=== PATIENT | female | born 2000 ===

== ENCOUNTER 2020-12-29 12:55 | Emergency (ER) | payer SELFPAY ==
[2020-12-29 14:21] VITALS: BP 123/72
--- NOTE | 2020-12-29 14:36 | Emergency Department Report ---
ED Upper Extremity Inj HPI - General Chief Complaint: Extremity Injury, Upper Stated Complaint: LFT THUMB FINGER INJURED Time Seen by Provider: 12/29/20 13:26 Source: patient Mode of arrival: Ambulatory Limitations: No Limitations - History of Present Illness Initial Comments: This pleasant 20-year-old female presents the emergency department chief comp laint of a crush injury to her left thumb. Patient reports she accidentally closed her thumb in the car door this morning. She denies any other injuries. She reports pain is 9 out of 10 aggravated with movement. She denies any past medical history, current medications or known allergies to medications. She denies any associated fever, chills, night sweats, headache, dizziness, blurry vision, nausea, vomit, diarrhea, chest pain, shortness of breath or any other associated symptoms. - Related Data Allergies Allergy/AdvReac Type Severity Reaction Status Date / Time No Known Allergies Allergy Unverified 12/29/20 14:15 ED Review of Systems ROS: Stated complaint: LFT THUMB FINGER INJURED Other details as noted in HPI Comment: All other systems reviewed and negative Constitutional: denies: chills, fever Eyes: denies: eye pain, eye discharge, vision change ENT: denies: ear pain, throat pain Respiratory: denies: cough, shortness of breath, wheezing Cardiovascular: denies: chest pain, palpitations Endocrine: no symptoms reported Gastrointestinal: denies: abdominal pain, nausea, diarrhea Genitourinary: denies: urgency, dysuria, discharge Musculoskeletal: as per HPI, arthralgia. denies: back pain, joint swelling Skin: denies: rash, lesions Neurological: denies: headache, weakness, paresthesias Psychiatric: denies: anxiety, depression Hematological/Lymphatic: denies: easy bleeding, easy bruising ED Past Medical Hx - Past Medical History Previous Medical History?: No - Surgical History Past Surgical History?: No - Social History Smoking Status: Never Smoker Substance Use Type: None ED Physical Exam - General Limitations: No Limitations General appearance: alert, in no apparent distress - Head Head exam: Present: atraumatic, normocephalic - Eye Eye exam: Present: normal appearance, PERRL, EOMI Pupils: Present: normal accommodation - ENT ENT exam: Present: normal exam, normal orophraynx, mucous membranes moist - Neck Neck exam: Present: normal inspection, full ROM. Absent: tenderness, meningismus - Respiratory Respiratory exam: Present: normal lung sounds bilaterally. Absent: respiratory distress - Cardiovascular Cardiovascular Exam: Present: regular rate, normal rhythm. Absent: systolic murmur, diastolic murmur, rubs, gallop - GI/Abdominal GI/Abdominal exam: Present: soft, normal bowel sounds - Extremities Exam Extremities exam: Present: tenderness (There is tenderness to the base of the nail bed on the left first digit. With a small subungual hematoma. No active bleeding. Normal active range of motion at the IP and MCP normal distal sensation cap refill). Absent: normal inspection - Back Exam Back exam: Present: normal inspection - Neurological Exam Neurological exam: Present: alert, oriented X3 - Psychiatric Psychiatric exam: Present: normal affect, normal mood - Skin Skin exam: Present: warm, dry, intact, normal color. Absent: rash ED Course Vital Signs 12/29/20 14:15 Temperature 98.2 F Pulse Rate 73 Respiratory 18 Rate Blood Pressure 123/72 O2 Sat by Pulse 99 Oximetry - I & D Left Finger Type of Procedure: Simple Site: Left thumb subungual Blade Size: cautery pen I & D Procedure: betadine prep Progress: The area was first cleaned with Betadine prep. I then used a cautery pen and melted a small hole through the nail. Some blood was then expressed. The area was then cleaned and a sterile bandage was placed over the wound. Patient tolerated the procedure well. Less than 5 mL of blood loss. ED Medical Decision Making - Radiology Data Radiology results: report reviewed, image reviewed XRay Report Signed Patient: TY CABRERA MR#: [id number] : 2000 Acct:[id number] Age/Sex: 20 / F ADM Date: 12/29/20 Loc: ED Attending Dr: Ordering Physician: VINCE IRELAND Date of Service: 12/29/20 Procedure(s): XR finger(s) 2+V LT Accession Number(s): [id number] cc: VINCE IRELAND Fluoro Time In Minutes: LEFT FINGERS 3 VIEWS INDICATION: left thumb crush injury. COMPARISON: None. IMPRESSION: No acute osseous or soft tissue abnormality. No significant DJD. Signer Name: Al Allan Jr, MD Signed: 12/29/2020 2:51 PM Workstation Name: [id number] Transcribed By: TTR Dictated By: AL ALLAN JR, MD Electronically Authenticated By: AL ALLAN JR, MD Signed Date/Time: 12/29/201450 DD/ 50 TD/TT: - Medical Decision Making Patient has subungual hematoma that was drained via cautery pen. Patient tolerated this well. [place] much better after the procedure. Recommend keeping the area clean and dry and follow-up with her primary care doctor. X-rays negative for fracture. Patient was instructed to return the emerge department any change or worsening symptoms. She verbalized understand the diagnosis, treatment plan and follow-up instructions and all of her questions were answered. - Differential Diagnosis Subungual hematoma, fracture, contusion Critical care attestation.: If time is entered above; I have spent that time in minutes in the direct care of this critically ill patient, excluding procedure time. ED Disposition Clinical Impression: Subungual hematoma of digit of hand Qualifiers: Encounter type: initial encounter Qualified Code(s): S60.10XA - Contusion of unspecified finger with damage to nail, initial encounter Disposition: DC-01 TO HOME OR SELFCARE Is pt being admited?: No Condition: Stable Instructions: Subungual Hematoma, [id number] Referrals: [facility] [Provider Group] - 3-5 Days Time of Disposition: 15:21
--- NOTE | 2020-12-29 14:56 | XRay Report ---
LEFT FINGERS 3 VIEWS INDICATION: left thumb crush injury. COMPARISON: None. IMPRESSION: No acute osseous or soft tissue abnormality. No significant DJD. Signer Name: Al Lopez Jr, MD Signed: 12/29/2020 2:51 PM Workstation Name: [id number]
== END 2020-12-29 16:57 | disposition home or self-care (01) ==
LOC: ED 12:55
DX: S60.10XA Contusion of unspecified finger with damage to nail, initial encounter (principal); W23.0XXA Caught, crushed, jammed, or pinched between moving objects, initial encounter; Y93.89 Activity, other specified; Y92.89 Other specified places as the place of occurrence of the external cause; Y99.8 Other external cause status
CPT/HCPCS: 99283